=== PATIENT | male | born 1935 | race Caucasian/White ===

== ENCOUNTER 2020-09-16 12:32 | Emergency (ER) | payer MEDICARE ==
[~2020-09-16 12:32] MED LIST: ASPIRIN CHEWABL81 MG PO; CARAFATE S500 MG/TSP PO; COLACE100 M1 PO; KLONOPIN0.5 MG PO; LASIX20 MG PO; LOPRESSOR25 MG PO; LUPRON DEPOT11.25 MG IJ; PAXIL40 MG PO; PLAVIX75 MG PO; POTASSIUM CHLO20 ME2 PO; SYNTHROID112 MCG PO; TRILAFON2 MG PO
[2020-09-16] MEDS ORDERED: NYSTATIN SUSP1 ML/ML SSP (15:38)
== END 2020-09-16 15:45 | disposition home or self-care (01) ==
LOC: FER 12:32
DX: K59.00 Constipation, unspecified (principal); B37.9 Candidiasis, unspecified; C79.51 Secondary malignant neoplasm of bone; Z88.0 Allergy status to penicillin; Z88.1 Allergy status to other antibiotic agents

== ENCOUNTER 2020-10-08 17:01 | Emergency (ER) | payer MEDICARE ==
[~2020-10-08 17:01] MED LIST changes: +NYSTATIN SUSP1 ML/ML SSP
[2020-10-08] MEDS ORDERED: MAGICMW SSW (17:52)
[2020-10-08] MEDS ORDERED: CLEOCIN300 MG PO (17:52)
== END 2020-10-08 18:20 | disposition home or self-care (01) ==
LOC: FER 17:01
DX: K05.329 Chronic periodontitis, generalized, unspecified severity (principal); K11.7 Disturbances of salivary secretion; I10 Essential (primary) hypertension; Z88.0 Allergy status to penicillin; Z88.1 Allergy status to other antibiotic agents; Z79.899 Other long term (current) drug therapy
CPT/HCPCS: 99282